=== PATIENT | female | born 1960 | race Caucasian/White ===

== ENCOUNTER 2017-02-09 12:58 | Emergency (ER) | payer MEDICARE, MEDICAID ==
[~2017-02-09] VITALS: Ht 162.6 cm; Wt 59.1 kg
[~2017-02-09 12:58] MED LIST: AMIT25TA26 PO; EST1 PO; LITH600C PO; PRI20 PO
[2017-02-09 13:05] VITALS: BP 123/57; PULSE 45; RESP 16; O2SAT 96
--- NOTE | 2017-02-09 13:43 | ED.REPORT ---
HPI-Extremity Problem Upper Date of Service Feb 09, 2017 ED Provider: Khari Nugent MD The pt is a 56 y/o female w/ a hx of L shoulder surgery and bipolar disorder presenting to the ED complaining of R wrist pain. She is also experiencing L shoulder pain. The pt had a GLF 3 weeks ago and was told she sprained her wrist. She also fell two days ago which caused her severe R wrist pain and L shoulder pain but there was no LOC. She was sent here from the walk in clinic for further imaging. Nursing Notes Stated Complaint: LEFT SHOULDER/RIGHT WRIST PAIN/FELL Chief Complaint: Extremity Trauma Nursing Notes Reviewed: Yes Allergies: Coded Allergies: hydrocodone (Verified Allergy, Severe, severe nausea and vomitting, 02/09/17 ) Scheduled Amitriptyline-Expunged Drug, Do Not Renew! (Amitriptyline-Expunged Drug, Do Not Renew!) 25 Mg Tablet 25 MG PO HS 1-4 tablets at bedtime Estradiol-Expunged Drug, Do Not Renew! (Estrace-Expunged Drug, Do Not Renew!) 1 Mg Tablet 1 MG PO DAILY Escobares Carbonate-Expunged Drug, Do Not Renew (Escobares Carbonate-Expunged Drug, Do Not Renew) 600 Mg Capsule 600 MG PO BID Omeprazole-Expunged Drug, Do Not Renew! (Omeprazole-Expunged Drug, Do Not Renew! ) 20 Mg Capcr 20 MG PO DAILY Scheduled PRN Naproxen (Naproxen) 500 Mg Tab 500 MG PO BID PRN PRN For Pain Tramadol (Tramadol) 50 Mg Tablet 50 MG PO QID PRN PRN For Pain General Time Seen by MD: 13:42 Chief Complaint Wrist injury right Hx Obtained From: Patient Arrived By: Walk-in Onset Occurred: 2 days ago Symptom Duration: Since onset Caused by: Fall on ground Recent Healthcare: No recent hospitalization, Recent doctor visit Similar Sx Previous: Yes Past Medical History Past Medical History Depression Anxiety Bipolar disorder Suicide attempt Past Surgical History Sinusitis with upcoming scheduled surgery L shoulder surgery Family History Noncontributory Smoking History Current Every Day Smoker Social History Alcohol Use: Denies alcohol use Drug Use: Denies drug use Ambulatory Status Independent Review of Systems Musculoskeletal: Reports: Joint pain (R wrist and L shoulder ) Physical Exam Initial Vital Signs Vital Signs (First) Date Time Temp Pulse Resp B/P Pulse Ox O2 Delivery O2 Flow Rate FiO2 02/09/17 13:05 36.5 45 16 123/57 96 Room Air Initial VS: Reviewed General/Constitutional: Well-developed, Well-nourished Head / Eyes: Atraumatic, Normocephalic, PERRL Neck: Supple, Non-tender, Full range of motion Respiratory: Breath sounds normal, Clear to auscultation, No respiratory distress Cardiovascular: Regular rate & rhythm, Heart sounds normal, Intact distal pulses Abdomen / GI: Soft, Non-tender, No guarding, No rebound, No distention Lower Extremities: Vascular intact, Neuro intact, No swelling, No tenderness Skin: Warm, Dry, No cyanosis Neurologic: Alert, Oriented, Nonfocal Psychiatric: Mood/affect normal, Behavior normal, Normal thought content Upper Extremity / MS: No deformity, Neurologic intact, Vascular intact Limited ROM of L shoulder Almost full ROM of R wrist Pain at distal radius Interpretation & Diagnostics X-Ray Interpretation Xray Interpretation: IMPRESSION: A subtle avulsion fracture is suspected involving the distal radius. Please consider CT of the wrist for further evaluation. Dictated by: Livan Rose M.D. on 02/09/2017 at 13:45 Approved by: Livan Rose M.D. on 02/09/2017 at 13:46 Study Performed: PROCEDURE: X-RAY RIGHT WRIST COMPLETE, MINIMUM THREE VIEWS ([id number]) Xray Interpretation: IMPRESSION: 1. No acute osseous abnormality of the left shoulder. 2. Postoperative and degenerative changes of the left shoulder. Dictated by: Livan Rose M.D. on 02/09/2017 at 13:43 Approved by: Livan Rose M.D. on 02/09/2017 at 13:44 Study Performed: PROCEDURE: X-RAY LEFT SHOULDER, MINIMUM TWO VIEWS ([id number]) Procedures Splint Post-Application Eval Splint Post-Application Eval: Right sugar tong Extremity Condition: Cap refill < 2 sec, Distal sensation intact, Distal motor Intact, No compartment syndrome Re-Eval/Medical Decision Med Decision/Clinical Course Findings are likely related to left-sided degenerative shoulder disease and possible rotator cuff injury as well as right sided probable severe sprain of the wrist though there is a small avulsion fragment. Patient is placed in a shoulder sling as well as a right wrist sugar tong splint to immobilize the painful joint. Recommend close follow-up with either her primary care orthopedics. Naproxen and tramadol prescribed. Return and follow-up precautions given. Source of Hx: Old records Re-Evaluation/Progress : Time of Eval: 15:27 Re-Evaluation/Progress Note: Pt rechecked. Informed pt of plan for treatment. Pt understands and agrees with plan for treatment. F/U instructions and RTER warnings given. All questions addressed. Counseled Regarding: Diagnosis, Lab results, Need for follow-up, When/why to return to ED Discharge & Departure Impression: Primary Impression: Left shoulder strain Encounter type: initial encounter Qualified Code: S46.912A - Strain of unspecified muscle, fascia and tendon at shoulder and upper arm level, left arm , initial encounter Additional Impression: Wrist fracture, right Encounter type: initial encounter Fracture type: closed Qualified Code: S62.101A - Fracture of unspecified carpal bone, right wrist, initial encounter for closed fracture Disposition: Home Discharge Condition All VS Reviewed: Yes Condition: Stable Additional Instructions: Your left shoulder appears to have degenerative changes likely due to arthritis. It seems that you have a small avulsion fracture of her distal radius this is likely due to severe strain however you should follow-up with orthopedics in about 1 week regarding this. Use tramadol and naproxen as needed for pain. Return to the ER as needed if worse. Referrals: [facility] Scribe Attestation Portions of this note were transcribed by Saleem Elliott. I, Dr. Nugent personally performed the history, physical exam and medical decision-making; I reviewed and confirmed the accuracy of the information in the transcribed note. Signed by : Jeff Mclaughlin, 02/09/17 and 1439. copies to: [facility] Khari Nugent DO Feb 09, 2017 13:43 Saleem Elliott Feb 09, 2017 14:39
--- NOTE | 2017-02-09 14:46 | DRSVH ---
PROCEDURE: X-RAY LEFT SHOULDER, MINIMUM TWO VIEWS ([id number]) INDICATIONS: Left shoulder injury. TECHNIQUE: 3 views of the shoulder were acquired. COMPARISON: [facility], , SHOULDER MIN 2VW (), 08/18/2008, 22:50. [facility], , SHOULDER MIN 2VW (LT), 08/03/2008, 18:40. FINDINGS: Bones: Postoperative changes of the glenoid are similar to the prior exam. There mild degenerative c hanges of the glenohumeral and acromioclavicular joints. No acute fracture or dislocation is evident . No suspicious osseous lesions are evident. Soft tissues: No suspicious soft tissue calcifications. IMPRESSION: 1. No acute osseous abnormality of the left shoulder. 2. Postoperative and degenerative changes of the left shoulder. Dictated by: Livan Rose M.D. on 02/09/2017 at 13:43 Approved by: Livan Rose M.D. on 02/09/2017 at 13:44
--- NOTE | 2017-02-09 14:48 | DRSVH ---
PROCEDURE: X-RAY RIGHT WRIST COMPLETE, MINIMUM THREE VIEWS ([id number]) INDICATIONS: Right wrist injury. TECHNIQUE: 4 views of the wrist were acquired. COMPARISON: [facility], , WRIST COMP MIN 3VW (RT), 02/10/2014, 12:10. FINDINGS: Bones: Small linear ossific/calcific densities are identified along the radial styloid and along the volar aspect of the distal radius, which were not apparent on the previous study. There are degenera tive changes noted involving the basal joint of the thumb and the scapholunate joint. Ulnar positive variance is noted. Soft tissues: No suspicious soft tissue calcifications. Soft tissue swelling about the wrist appear s to be present. IMPRESSION: A subtle avulsion fracture is suspected involving the distal radius. Please consider CT of the wrist for further evaluation. Dictated by: Livan Rose M.D. on 02/09/2017 at 13:45 Approved by: Livan Rose M.D. on 02/09/2017 at 13:46
[2017-02-09] MEDS ORDERED: NPR500T PO (15:20)
[2017-02-09] MEDS ORDERED: TRAM50TA2 PO (15:20)
[2017-02-09 15:35] VITALS: BP 135/86; PULSE 83; RESP 16; O2SAT 99
== END 2017-02-09 15:36 | disposition home or self-care (01) ==
LOC: SED 12:58
DX: S62.101A Fracture of unspecified carpal bone, right wrist, initial encounter for closed fracture (principal); S46.912A Strain of unspecified muscle, fascia and tendon at shoulder and upper arm level, left arm, initial encounter; W10.9XXA Fall (on) (from) unspecified stairs and steps, initial encounter; Y93.89 Activity, other specified; Y92.89 Other specified places as the place of occurrence of the external cause; Y99.8 Other external cause status; F41.8 Other specified anxiety disorders; F31.9 Bipolar disorder, unspecified; F17.200 Nicotine dependence, unspecified, uncomplicated; Z98.890 Other specified postprocedural states; Z88.5 Allergy status to narcotic agent